=== PATIENT | male | born 1960 | race African-American/Black ===

== ENCOUNTER 2017-08-09 17:15 | Emergency (ER) | payer OTHER ==
[2017-08-09 17:19] VITALS: BP 133/80; PULSE 109; BMI 34.2
[2017-08-09] MEDS ORDERED: ACETAMINOPHEN 325 MG TABLET (FP) PO ONE (17:21)
--- NOTE | 2017-08-09 18:04 | PDOC ---
History of Present Illness - General Chief Complaint: Cold Symptoms Stated Complaint: HEADACHE Time Seen by Provider: 08/09/17 17:37 History Source: Patient Exam Limitations: No Limitations - History of Present Illness Initial Comments: 08/09/17 17:59 57-year-old male presents the emergency room with complaints of myalgia, arthralgia, headache, cough, and fever for the past day. 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 Patient also denies dizziness, chest pain, shortness of breath, abdominal pain or nausea. Timing/Duration: 24 hours Severity: moderate Associated Symptoms: reports: cough, fever/chills, headaches, malaise, weakness Past History - Travel Traveled outside of the country in the last 30 days: No Close contact w/someone who was outside of country & ill: No - Past Medical History Allergies/Adverse Reactions: Allergies Allergy/AdvReac Type Severity Reaction Status Date / Time No Known Allergies Allergy Verified 08/09/17 17:19 Home Medications: Ambulatory Orders NK [No Known Home Medication] 08/09/17 COPD: No Other medical history: NONE - Immunization History Immunization Up to Date: Yes - Suicide/Smoking/Psychosocial Hx Smoking Status: No Smoking History: Never smoked Number of Cigarettes Smoked Daily: 0 Cigars Per Day: 0 Hx Alcohol Use: No Drug/Substance Use Hx: No Patient Lives Alone: No Lives with/in: spouse/SO Review of Systems - Review of Systems Able to Perform ROS?: Yes Constitutional: Yes: Fever Respiratory: Yes: Cough Cardiac (ROS): No: Symptoms Reported ABD/GI: No: Symptoms Reported : No: Symptoms Reported Musculoskeletal: Yes: Joint Pain, Muscle Pain Integumentary: No: Symptoms Reported Neurological: Yes: Headache. No: Dizziness Hematologic/Lymphatic: No: Symptoms Reported *Physical Exam - Vital Signs Last Vital Signs Temp Pulse Resp BP Pulse Ox 101.1 F H 109 H 20 133/80 99 08/09/17 17:16 08/09/17 17:16 08/09/17 17:16 08/09/17 17:16 08/09/17 17:16 - Physical Exam General Appearance: Yes: Nourished, Appropriately Dressed. No: Apparent Distress HEENT: negative: Pale Conjunctivae Neck: positive: Supple Respiratory/Chest: positive: Lungs Clear, Normal Breath Sounds. negative: Respiratory Distress, Accessory Muscle Use Cardiovascular: positive: Regular Rhythm. negative: Murmur, Tachycardia Gastrointestinal/Abdominal: positive: Soft. negative: Tenderness Extremity: positive: Normal Capillary Refill. negative: Pedal Edema Integumentary: positive: Normal Color, Warm, Moist Neurologic: positive: Motor Strength 5/5 (ambulatory) ED Treatment Course - Medications Given in the ED: ED Medications Discontinued Medications Generic Name Dose Route Start Last Admin Trade Name Freq PRN Reason Stop Dose Admin Acetaminophen 650 mg 08/09/17 17:21 08/09/17 17:21 Tylenol - PO 08/09/17 17:22 650 mg NOW ONE Administration Medical Decision Making - Medical Decision Making 08/09/17 18:05 Pt with URI with fever. Pt given tylenol. Pt ordered for Influenza 08/09/17 18:26 Influenza swab negative. Based on clinical exam. Patient will be given Tamiflu. *DC/Admit/Observation/Transfer Diagnosis at time of Disposition: Influenza - Discharge Dispostion Disposition: HOME Condition at time of disposition: Good - Referrals Referrals: Dmitriy Rea [Primary Care Provider] - - Patient Instructions Printed Discharge Instructions: DI for Influenza -- Adult Additional Instructions: Please take Tylenol for was prescribed and take Motrin 400 mg every 6-8 hours for adequate fever and pain control. Please up with your doctor as needed and rest for the next 24 hours - Post Discharge Activity Forms/Work/School Notes: Back to Work
[2017-08-09 18:34] VITALS: TEMP 99
== END 2017-08-09 18:34 | disposition home or self-care (01) ==
LOC: JERFT 17:15
DX: J11.1 Influenza due to unidentified influenza virus with other respiratory manifestations (principal)
CPT/HCPCS: 87804; 99281-25

== ENCOUNTER 2017-10-04 11:47 | Emergency (ER) | payer OTHER ==
[2017-10-04 11:51] VITALS: BP 118/83; PULSE 89; TEMP 98.2; BMI 36.5
--- NOTE | 2017-10-04 12:45 | PDOC ---
History of Present Illness - General Chief Complaint: Rash Stated Complaint: RASH History Source: Patient Exam Limitations: No Limitations - History of Present Illness Initial Comments: 10/04/17 12:48 This 57-year-old male presents to the emergency room with a rash that is noted around the whole trunk of his body. He states that this happens on a yearly in the wintertime exclusively. He has gone to his doctor's however this year he was not able to get there for any kind of cream for relief of this hives/rash that is noted on his back and his chest. He does not have any tongue swelling, ALLERGIC reaction symptoms, anaphylactic symptoms. He does have this rash from his neck down to his pelvis. Past History - Past Medical History Allergies/Adverse Reactions: Allergies Allergy/AdvReac Type Severity Reaction Status Date / Time No Known Allergies Allergy Verified 10/04/17 11:51 Home Medications: Ambulatory Orders Diphenhydramin/Benzethon/Zinc [Calagel Gel] 177.44 ml TP BID #1 tube 10/04/17 Methylprednisolone [Medrol Dose [place]] 4 mg PO ASDIR #21 tablet 10/04/17 COPD: No - Immunization History Immunization Up to Date: Yes - Suicide/Smoking/Psychosocial Hx Smoking Status: No Smoking History: Never smoked Number of Cigarettes Smoked Daily: 0 Cigars Per Day: 0 Hx Alcohol Use: No Drug/Substance Use Hx: No Review of Systems - Review of Systems Able to Perform ROS?: Yes Comments:: 10/04/17 12:49 General statement: Rash Hematology: neg history of bleeding/blood thinners Skin: Neg for lesions, bruising. Positive rash HEENT: Neg symptoms Respiratory: Neg SOB or difficulty in breathing Cardiac: Neg chest pain GI: Neg pain, n/v : Neg problems on voiding MS: Neg for joint pain/stiffness, no edema Neuro: Neg for LOC, weakness, Endocrine: Neg for excess thirst/hunger, cold/heat intolerance, excess sweating Allergies: Neg for allergies *Physical Exam - Vital Signs Last Vital Signs Temp Pulse Resp BP Pulse Ox 98.2 F 89 18 118/83 99 10/04/17 11:48 10/04/17 11:48 10/04/17 11:48 10/04/17 11:48 10/04/17 11:48 - Physical Exam Comments: 10/04/17 12:50 General Appearance: This well appearing 57-year-old male V/S: hemodynamically stable, afebrile Skin: WNL of pt's skin color, no signs of pallor, mottling, cyanosis with noted rash throughout the trunk Head:symmetrical Eyes: EOM's intact, PERRLA Ears: denies pain Nose: patent Throat: lips, teeth, gums, tongue, buccal mucos pink and moist Lungs: Chest symmetry equal. Cap refill <3 seconds. Lung sounds clear Cardiac: PMI at R 4MCL space, pos S1 and S2, regular rate. Abdomen: Soft, round, nontender : Not observed Muscularskeletal: Gait steady, ambulated in to ER, no edema +PMS Neuro: AAOx3, cognitively intact, speech clear and appropriate. Medical Decision Making - Medical Decision Making 10/04/17 12:50 Patient was initially seen and examined. Patient is noted to have a rash. He's been taking Benadryl and making him tired. I've ordered him a Medrol Dosepak as well as some Caladryl suggestion and changing his Benadryl to Zyrtec. 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 *DC/Admit/Observation/Transfer Diagnosis at time of Disposition: Rash of back - Discharge Dispostion Disposition: HOME Condition at time of disposition: Good Admit: No - Prescriptions Prescriptions: Diphenhydramin/Benzethon/Zinc [Calagel Gel] 177.44 ml TP BID #1 tube Methylprednisolone [Medrol Dose [place]] 4 mg PO ASDIR #21 tablet - Referrals Referrals: ON STAFF,NOT [Primary Care Provider] - - Patient Instructions Printed Discharge Instructions: DI for Rash Additional Instructions: Discharge instructions 1. Please follow up with your primary physician within the next few days and explain that you have been seen here in the Emergency Room. 2. If you experience any worsening of symptoms, please return to the ER 3. use the steriods as prescribed. You could use the claritin instead of benadryl for itching. You can use caladryl for itching. These are over the counter. 4. Drink plenty of water - Post Discharge Activity
== END 2017-10-04 12:49 | disposition home or self-care (01) ==
LOC: JERFT 11:47
DX: R21 Rash and other nonspecific skin eruption (principal)
CPT/HCPCS: 99281-25

== ENCOUNTER 2018-12-30 00:43 | Emergency (ER) | payer OTHER ==
[2018-12-30 01:16] VITALS: BP 165/83; PULSE 66; TEMP 97.4; BMI 36.5
--- NOTE | 2018-12-30 01:19 | PDOC ---
History of Present Illness - General Chief Complaint: Pain Stated Complaint: ABDOMINAL PAIN Time Seen by Provider: 12/30/18 01:19 History Source: Patient Exam Limitations: No Limitations - History of Present Illness Initial Comments: Pt is a 58 yo M, with no significant PMH, who is presenting with complaints of L -sided abdominal pain for a few hours prior to presentation. Pt states he has had sharp pain which is intermittent and lasts for a few seconds, then resolves on its own. The pain comes every few minutes. Pt states he had a small BM yesterday, but was trying to go to the bathroom all day yesterday. He was not able to have a BM today, and was not able to pass gas. Pt denies any new or raw foods. Pt denies any fevers/chills, headache, vision changes, syncope, chest pain, palpitations, SOB, nausea/vomiting, urinary symptoms, diarrhea, or leg swelling. Social: Pt denies any cigarette, alcohol, or drug use. Pt denies any recent travel or sick contacts. Surgical: no relevant history. Family: brother with VT in 50s. 12/30/18 06:22 Past History - Travel Traveled outside of the country in the last 30 days: No Close contact w/someone who was outside of country & ill: No - Past Medical History Allergies/Adverse Reactions: Allergies Allergy/AdvReac Type Severity Reaction Status Date / Time No Known Allergies Allergy Verified 12/30/18 01:16 Home Medications: Ambulatory Orders Diphenhydramin/Benzethon/Zinc [Calagel Gel] 177.44 ml TP BID #1 tube 10/04/17 Methylprednisolone [Medrol Dose [place]] 4 mg PO ASDIR #21 tablet 10/04/17 Docusate Sodium [Colace -] 100 mg PO DAILY PRN #7 capsule 12/30/18 Glycerin Suppository Adult - 1 each RC ONCE PRN #2 supp.rect 12/30/18 COPD: No - Immunization History Immunization Up to Date: Yes - Suicide/Smoking/Psychosocial Hx Smoking Status: No Smoking History: Never smoked Have you smoked in the past 12 months: No Number of Cigarettes Smoked Daily: 0 Cigars Per Day: 0 Information on smoking cessation initiated: No Hx Alcohol Use: No Drug/Substance Use Hx: No Review of Systems - Review of Systems Able to Perform ROS?: Yes Is the patient limited Romanian proficient: No Constitutional: Yes: Weight Stable. No: Chills, Diaphoresis, Fever, Loss of Appetite, Malaise, Weakness HEENTM: No: Blurred Vision, Double Vision, Nose Congestion, Throat Pain, Difficulty Swallowing Respiratory: No: Cough, Orthopnea, Shortness of Breath Cardiac (ROS): No: Chest Pain, Edema, Irregular Heart Rate, Lightheadedness, Palpitations, Syncope, Chest Tightness ABD/GI: Yes: See HPI, Abdominal cramping. No: Constipated, Diarrhea, Nausea, Poor Appetite, Poor Fluid Intake, Rectal Bleeding, Vomiting, Tarry Stools : No: Burning, Dysuria, Pain, Urgency Musculoskeletal: No: Back Pain, Joint Pain Integumentary: No: Rash Neurological: No: Headache, Numbness, Weakness, Unsteady Gait, Dizziness Psychiatric: No: Sleep Pattern Change, Change in Appetite Endocrine: No: Increased Urine, Change in Weight Hematologic/Lymphatic: No: Anemia, Blood Clots, Easy Bleeding, Easy Bruising All Other Systems: Reviewed and Negative *Physical Exam - Vital Signs Last Vital Signs Temp Pulse Resp BP Pulse Ox 97.4 F L 66 22 H 165/83 99 12/30/18 00:43 12/30/18 00:43 12/30/18 00:43 12/30/18 00:43 12/30/18 00:43 - Physical Exam Comments: Vitals stable, pt afebrile. Pt appears uncomfortable, holding L side of abdomen. Obese body habitus. Pt alert and oriented x3. 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 No midline spinal tenderness, step-offs, or crepitus. Head normocephalic, atraumatic. Eyes PERRLA, EOMI. Oropharynx without erythema or exudates, no LAD b/l. No nasal congestion, hearing intact. Clear heart sounds, S1/S2, no JVD, b/l pedal edema, or heart murmur. Clear lung sounds, no respiratory distress, wheezes, crackles, or accessory muscle use. No abdominal or CVA tenderness to palpation, no rebound, no guarding. Abdomen soft, protuberant and mildly distended, and with normoactive bowel sounds. Reducible umbilical hernia. Skin without jaundice or rash. 12/30/18 06:23 ED Treatment Course - LABORATORY CBC & Chemistry Diagram: 12/30/18 02:41 12/30/18 02:41 Medical Decision Making - Medical Decision Making Pt was seen at bedside, also will be seen by attending Dr. Knott. Pt presenting with complaints of L-sided abdominal pain for a few hours prior to presentation. Pt states he has had sharp pain which is intermittent and lasts for a few seconds, then resolves on its own. The pain comes every few minutes. Pt states he had a small BM yesterday, but was trying to go to the bathroom all day yesterday. He was not able to have a BM today, and was not able to pass gas. Pt denies any new or raw foods. Pt denies any fevers/chills, headache, vision changes, syncope, chest pain, palpitations, SOB, nausea/vomiting, urinary symptoms, diarrhea, or leg swelling. Considering obstruction vs mesenteric ischemia vs constipation/gas pains vs pancreatitis. Ordered work-up including CBC, CMP, lactic acid, lipase, CT abd/pelvis with IV contrast. Provided 1 g ofirmev and 1 L IV NS for improvement of discomfort. Will continue to reassess pt and monitor for symptomatic improvement. CBC, CMP, lactic, and lipase all WNL. CT abd/pelvis showed mildly enlarged prostate but no acute pathology. Pt states pain improved after interventions. Serial abdominal exam showed no tenderness. Considering normal lab results and imaging, pt can be discharged to home with follow-up. Pt advised to follow-up with PCP in 1-2 days and has been referred to GI. Strict return precautions provided with pt understanding. Sent glycerin suppositories and stool softener to pt pharmacy. 12/30/18 06:02 *DC/Admit/Observation/Transfer Diagnosis at time of Disposition: Abdominal pain Qualifiers: Abdominal location: generalized Qualified Code(s): R10.84 - Generalized abdominal pain - Discharge Dispostion Disposition: HOME Condition at time of disposition: Improved Decision to Admit order: No - Prescriptions Prescriptions: Docusate Sodium [Colace -] 100 mg PO DAILY PRN #7 capsule PRN Reason: Constipation Glycerin Suppository Adult - 1 each RC ONCE PRN #2 supp.rect PRN Reason: Constipation - Referrals Referrals: Dmitriy Rea [Primary Care Provider] - Butch Traore MD [Staff Physician] - - Patient Instructions Printed Discharge Instructions: DI for Dyspepsia Additional Instructions: You were seen in the ER today for abdominal pain. The results of your labs and imaging today were normal. Please follow-up with your primary care doctor and GI (Dr. Oliver) within 1-2 days to discuss your visit and make sure your symptoms have improved. Please return to the ER if you have any worsening pain, development of fevers or chills, loss of consciousness, inability to tolerate food or fluids, or any other concerns. - Post Discharge Activity
--- NOTE | 2018-12-30 01:55 | PDOC ---
Attending Attestation - Resident Resident Name: Alise Granger - ED Attending Attestation I have performed the following: I have examined & evaluated the patient, The case was reviewed & discussed with the resident, I agree w/resident's findings & plan
[2018-12-30] MEDS ORDERED: ACETAMINOPHEN 1000 MG/100 ML VIAL (NON FORMULARY) IVPB ONE (02:17)
[2018-12-30] MEDS ORDERED: SODIUM CHLORIDE 1,000 ML IV STA (02:17)
[2018-12-30 02:53] LABS: BASO % 0.8 % (0-2.0); EOS % 2.7 % (0-4.5); HEMOGLOBIN 13.6 GM/dL (11.7-16.9); LYMPH % 30.7 % (8-40); MCH 30.8 pg (25.7-33.7); MCHC 34.9 g/dl (32.0-35.9); MEAN CELL VOLUME 88.2 fl (80-96); MEAN PLT VOLUME 7.6 fl (7.5-11.1); MONO % 10.6 % (3.8-10.2); NEUT % 55.2 % (42.8-82.8); PLATELET COUNT 214 K/MM3 (134-434); RBC 4.43 M/mm3 (4.00-5.60); RDW 13.8 % (11.9-15.9); WHITE BLOOD COUNT 5.5 K/mm3 (4.0-10.0)
[2018-12-30 03:11] LABS: INR 1.08 (0.83-1.09); PROTHROMBIN TIME (PATIENT) 12.8 SEC (9.7-13.0)
[2018-12-30 03:21] LABS: ALBUMIN 3.4 g/dl (3.4-5.0); ALK PHOS 60 U/L (45-117); ANION GAP 4 MMOL/L (8-16); BILIRUBIN,TOTAL 0.2 mg/dL (0.2-1); BLOOD UREA NITROGEN 19 mg/dL (7-18); CALCIUM 8.7 mg/dL (8.5-10.1); CHLORIDE 107 mmol/L (98-107); CO2 27 mmol/L (21-32); CREATININE 0.8 mg/dL (0.55-1.3); GLUCOSE,RANDOM 103 mg/dL (74-106); LIPASE 115 U/L (73-393); MAGNESIUM 2.1 mg/dL (1.8-2.4); POTASSIUM 4.1 mmol/L (3.5-5.1); SGOT/AST 18 U/L (15-37); SGPT/ALT 31 U/L (13-61); SODIUM 138 mmol/L (136-145); TOT PROT 7.2 g/dl (6.4-8.2)
[2018-12-30] MEDS ORDERED: morphine CARPU-JECT 4 MG/1 ML DISP.SYRIN IVPUSH ONE (03:37)
[2018-12-30] MEDS ORDERED: morphine SULFATE 4 MG/ML VIAL ONE (04:11)
--- NOTE | 2018-12-30 12:06 | EKG ---
Test Reason : Blood Pressure : / mmHG Vent. Rate : 055 BPM Atrial Rate : 055 BPM P-R Int : 154 ms QRS Dur : 088 ms QT Int : 402 ms P-R-T Axes : 041 -38 011 degrees QTc Int : 384 ms SINUS BRADYCARDIA LEFT AXIS DEVIATION ABNORMAL ECG WHEN COMPARED WITH ECG OF 30-OCT-2014 20:35, NO SIGNIFICANT CHANGE WAS FOUND Confirmed by BRENT SORENSEN MD ([id number]) on 12/30/2018 12:05:57 PM Referred By: Confirmed By:BRENT SORENSEN MD
== END 2018-12-30 06:17 | disposition home or self-care (01) ==
LOC: JER 00:43
PROC: 3E0337Z Introduction of Electrolytic and Water Balance Substance into Peripheral Vein, Percutaneous Approach (ICD-10-PCS; principal; 2018-12-30)
PROC: 3E033NZ Introduction of Analgesics, Hypnotics, Sedatives into Peripheral Vein, Percutaneous Approach (ICD-10-PCS; 2018-12-30)
PROC: 3E033NZ Introduction of Analgesics, Hypnotics, Sedatives into Peripheral Vein, Percutaneous Approach (ICD-10-PCS; 2018-12-30)
DX: R10.84 Generalized abdominal pain (principal); K59.00 Constipation, unspecified
CPT/HCPCS: 36415; 71045-TC-FY; 74177-TC; 80053; 83605; 83690; 83735; 84484; 85025; 85610; 86850; 86900; 86901; 93005; 93010; 99281-25; J0131; J7030

== ENCOUNTER 2020-06-05 11:27 | Emergency (ER) | payer OTHER ==
[2020-06-05] MEDS ORDERED: SODIUM CHLORIDE 1,000 ML IV STA (11:31)
[2020-06-05] MEDS ORDERED: ACETAMINOPHEN 1000 MG/100 ML VIAL (NON FORMULARY) IVPB ONE ×2 (11:31→12:55)
--- NOTE | 2020-06-05 11:31 | PDOC ---
Rapid Medical Evaluation Time Seen by Provider: 06/05/20 11:29 Medical Evaluation: Allergies Allergy/AdvReac Type Severity Reaction Status Date / Time No Known Allergies Allergy Verified 12/30/18 01:16 06/05/20 11:29 I have performed a brief in-person evaluation of this patient. CC: abdominal pain x3 days PE: LLQ tenderness with guarding Orders: abd w/u Patient will proceed to ED for further evaluation. Discharge Disposition - Diagnosis Abdominal pain - Referrals - Patient Instructions - Post Discharge Activity
[2020-06-05 11:32] VITALS: BMI 36.5
--- NOTE | 2020-06-05 12:05 | PDOC ---
Attending Attestation - Resident Resident Name: TalhaDagoberto - ED Attending Attestation I have performed the following: I have examined & evaluated the patient, The case was reviewed & discussed with the resident, I agree w/resident's findings & plan, Exceptions are as noted - HPI HPI: 06/05/20 11:56 60y M no known pmhx presents with complaint of abdominal pain since thursday. The pt endorses an intermittent sharp abdomiinal pain in the mid abdomen since thursday, the pain is intermittent, lasting approx 10 min but recurs several times an hour. The pain seems more frequent/persistent over the past day. He denies any fever/chills, n/v, cp, sob, diaphoresis, cough. The pain does not radiate to either side, groin or to his back. There are no alleviating or exacerbating factors, when he gets the pain, he just waits it out. Last BM was this morning and did not change his abd pain. No prior surgical history. Physicial esxam: GENERAL: The patient is awake, alert, and fully oriented, Nontoxic - in no acute distress. HEAD: Normocephalic, atraumatic. EYES: extraocular movements intact, sclera anicteric, conjunctiva clear. ENT: Normal voice, Moist mucous membranes. NECK: Normal range of motion, supple LUNGS: Breath sounds equal, clear to auscultation bilaterally. No wheezes, no rhonchi, no rales. HEART: Regular rate and rhythm, normal S1 and S2 without murmur, rub or gallop. ABDOMEN: Soft, mild periumbilical tendernss, reducible umbilical hernia that is nontender, No guarding, no rebound. No CVA tenderness EXTREMITIES: Normal range of motion, no edema. NEUROLOGICAL: No facial assymetry, Normal speech, PSYCH: Normal mood, normal affect. SKIN: Warm, Dry, normal turgor, ddx is wide and includes pancreatitis, gastritis, cholelithiasis, nephrolithasis, ileus. will obtain blood work analgesia ct abdomen will reassess - Physicial Exam PE: 06/09/20 12:52 see above - Medical Decision Making 06/05/20 13:56 The patient's blood work was reviewed noted for potassium of 7.0 however I believe this is likely due to a hemolyzed specimen the patient's EKG does not reveal any signs of hyperkalemia. We will resend his blood work 06/05/20 15:21 pts repeat labs normal ct abd without acute process pt feeling improved, tolerated oral intake will dc the pt with outpt fu return precautions were discussed Heart Score/ECG Review - ECG Impressions Comment:: 06/05/20 13:57 Twelve-lead EKG was performed and reviewed by me. There is normal sinus rhythm with a rate of 52 Left axis deviation The intervals are normal. There is normal R wave progression There are no ST or T wave abnormalities. Impression: Sinus bradycardia Discharge - Discharge Information Problems reviewed: Yes Clinical Impression/Diagnosis: Abdominal pain Qualifiers: Abdominal location: periumbilical Qualified Code(s): R10.33 - Periumbilical pain Condition: Good Disposition: HOME - Admission No - Follow up/Referral Referrals: Hardeep Christensen MD [Staff Physician] - Jose Roberto Ornelas MD [Staff Physician] - ON STAFF,NOT [Primary Care Provider] - - Patient Discharge Instructions Patient Printed Discharge Instructions: DI for Abdominal Pain-Adult Additional Instructions: You were seen in the ER for abdominal pain. You received labs, imaging, and medications. Your labs were unremarkable. Your imaging may have shown evidence of a small obstruction of your small bowel however this is not certain. After receiving medications you reported improvement of your symptoms. You were able to drink water without vomiting or worsening of your pain which is reassuring. 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 If you experience any of the following return to the ER immediately: - worsening abdominal pain - rigid abdomen - inability to pass gas or stool - reduction in frequency of bowel movements - blood in your stool - vomiting - fever, chills - chest pain or shortness of breath - Post Discharge Activity Work/Back to School Note: Back to Work
--- NOTE | 2020-06-05 12:20 | PDOC ---
History of Present Illness - General Chief Complaint: Pain Stated Complaint: ABD.PAIN Time Seen by Provider: 06/05/20 11:29 - History of Present Illness Initial Comments: 60 YOM no history presents with abdominal pain since two days. Patient reports the pain is diffuse, sharp in quality, comes in waves, 8/10 at worst, no change with eating or position, no radiation. Last bowel movement was this AM, unsure of last flatus. No h/o abdominal surgery. Patient has abdominal hernia and wonders if pain is related. Denies pain or blood with urination, pain or blood with stool, denies cp, sob, n/v/d, fever or chills. No recent sick contacts, no recent travel. PC is roxana clemente Constitutional: No Weight Change, No Fever, No Chills, No Night Sweats, No Fatigue, No Malaise ENT/Mouth: No Hearing Changes, No Ear Pain, No Nasal Congestion, No Sinus Pain, No Hoarseness, No sore throat, No Rhinorrhea, No Swallowing Difficulty Eyes: No Eye Pain, No Swelling, No Redness, No Foreign Body, No Discharge, No Vision Changes Cardiovascular: No Chest Pain, No SOB, No PND, No Dyspnea on Exertion, No Orthopnea, No Claudication, No Edema, No Palpitations Respiratory: No Cough, No Sputum, No Wheezing, No Smoke Exposure, No Dyspnea Gastrointestinal: No Nausea, No Vomiting, No Diarrhea, No Constipation, + Pain, No Heartburn, No Anorexia, No Dysphagia, No Hematochezia, No Melena, No Flatulence, No Jaundice Genitourinary: No Dysmenorrhea, No DUB, No Dyspareunia, No Dysuria, No Urinary Frequency, No Hematuria, No Urinary Incontinence, No Urgency, No Flank Pain, No Urinary Flow Changes, No Hesitancy Musculoskeletal: No Arthralgias, No Myalgias, No Joint Swelling, No Joint Stiffness, No Back Pain, No Neck Pain, No Injury History Skin: No Skin Lesions, No Pruritis, No Hair Changes, No Breast/Skin Changes, No Nipple Discharge Neuro: No Weakness, No Numbness, No Paresthesias, No Loss of Consciousness, No Syncope, No Dizziness, No Headache, No Coordination Changes, No Recent Falls Psych: No Anxiety/Panic, No Depression, No Insomnia, No Personality Changes, No Delusions, No Rumination, No SI/HI/AH/VH, No Social Issues, No Memory Changes, No Violence/Abuse Hx., No Eating Concerns Heme/Lymph: No Bruising, No Bleeding, No Transfusions History, No Lymphadenopathy Endocrine: No Polyuria, No Polydipsia, No Temperature Intolerance 06/05/20 12:31 Past History - Medical History Allergies/Adverse Reactions: Allergies Allergy/AdvReac Type Severity Reaction Status Date / Time No Known Allergies Allergy Verified 12/30/18 01:16 Home Medications: Ambulatory Orders Diphenhydramin/Benzethon/Zinc [Calagel Gel] 177.44 ml TP BID #1 tube 10/04/17 Methylprednisolone [Medrol Dose [place]] 4 mg PO ASDIR #21 tablet 10/04/17 Docusate Sodium [Colace -] 100 mg PO DAILY PRN #7 capsule 12/30/18 Glycerin Suppository Adult - 1 each RC ONCE PRN #2 supp.rect 12/30/18 COPD: No - Immunization History Immunization Up to Date: Yes - Psycho-Social/Smoking History Smoking Status: No Smoking History: Never smoked Have you smoked in the past 12 months: No Number of Cigarettes Smoked Daily: 0 Cigars Per Day: 0 Information on smoking cessation initiated: No - Substance Abuse Hx (Audit-C & DAST Scrn) How often the patient has a drink containing alcohol: Never Score: In Men: 4 or > Positive; In Women: 3 or > Positive: 0 Screen Result (Pos requires Nsg. Audit-10AR): Negative In the last yr the pt used illegal drug/Rx for NonMed reason: No Score: Yes response is considered Positive: 0 Screen Result (Positive result requires Nsg. DAST-10): Negative *Physical Exam - Vital Signs Last Vital Signs Temp Pulse Resp BP Pulse Ox 98.0 F 56 L 19 132/78 99 06/05/20 11:30 06/05/20 11:30 06/05/20 11:30 06/05/20 11:30 06/05/20 11:30 - Physical Exam General Appearance: Yes: Nourished, Appropriately Dressed HEENT: positive: EOMI, TELLY, Normal ENT Inspection, Normal Voice, Symmetrical, TMs Normal, Pharynx Normal Neck: positive: Trachea midline, Normal Thyroid Respiratory/Chest: positive: Lungs Clear, Normal Breath Sounds Cardiovascular: positive: Regular Rhythm, Regular Rate, S1, S2 Gastrointestinal/Abdominal: positive: Normal Bowel Sounds, Tender, Flat, Soft, Tenderness Extremity: positive: Normal Capillary Refill, Normal Inspection Integumentary: positive: Normal Color, Dry, Warm 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: 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: 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-XII NML intact, Fully Oriented, Alert, Normal Mood/Affect, Normal Response, Motor Strength / ED Treatment Course - LABORATORY CBC & Chemistry Diagram: 06/05/20 12:50 06/05/20 13:55 Medical Decision Making - Medical Decision Making 60 YOM, no history, with abdominal pain - vitals stable - exam significant for ttp in center of abdomen, otherwise unremarkable - will do CBC, CMP, lipase, lactate, CT abdomen, Maalox, tylenol, famotidine and reassess reassess: - patient reports he is feeling better after medications - [address] abdomen, first report read no evidence of acute intra abdominal pathology, 2nd radiologist called and reported possible small obs truction in small bowel but uncertain, PO challenged patient, was able to tolerate PO without any pain, offered CT study with PO contrast and patient declined preferring to return home and follow up with surgery and GI as an oupatient, patient was given strict return precautions, patient expressed u nderstanding. - will dc patient to f/u with surgery and GI 06/05/20 16:54 Discharge - Discharge Information Problems reviewed: Yes Clinical Impression/Diagnosis: Abdominal pain Condition: Good - Admission No - Follow up/Referral Referrals: ON STAFF,NOT [Primary Care Provider] - Jose Roberto Ornelas MD [Staff Physician] - Hardeep Christensen MD [Staff Physician] - - Patient Discharge Instructions Patient Printed Discharge Instructions: DI for Abdominal Pain-Adult Additional Instructions: You were seen in the ER for abdominal pain. You received labs, imaging, and medications. Your labs were unremarkable. Your imaging may have shown evidence of a small obstruction of your small bowel however this is not certain. After receiving medications you reported improvement of your symptoms. You were able to drink water without vomiting or worsening of your pain which is reassuring. We advise that you follow up with a camp boss and general surgeon within one week of discharge from the ER. If you experience any of the following return to the ER immediately: - worsening abdominal pain - rigid abdomen - inability to pass gas or stool - reduction in frequency of bowel movements - blood in your stool - vomiting - fever, chills - chest pain or shortness of breath - Post Discharge Activity Work/Back to School Note: Back to Work
--- NOTE | 2020-06-05 12:20 | EKG ---
Test Reason : Blood Pressure : / mmHG Vent. Rate : 052 BPM Atrial Rate : 052 BPM P-R Int : 168 ms QRS Dur : 092 ms QT Int : 412 ms P-R-T Axes : 032 -35 001 degrees QTc Int : 383 ms SINUS BRADYCARDIA LEFT AXIS DEVIATION ABNORMAL ECG WHEN COMPARED WITH ECG OF 30-DEC-2018 03:05, NO SIGNIFICANT CHANGE WAS FOUND Confirmed by MD Clark Edward ([id number]) on 06/05/2020 12:20:36 PM Referred By: Confirmed By:Jak Clark MD
[2020-06-05] MEDS ORDERED: ACETAMINOPHEN INJECTION 100 ML IVPB ONE (12:51)
[2020-06-05 13:02] LABS: BASO % 1.4 % (0-2.0); EOS % 3.2 % (0-4.5); HEMATOCRIT 40.5 % (35.4-49); HEMOGLOBIN 13.9 GM/dL (11.7-16.9); LYMPH % 36.4 % (8-40); MCH 30.3 pg (25.7-33.7); MCHC 34.3 g/dl (32.0-35.9); MEAN CELL VOLUME 88.4 fl (80-96); MEAN PLT VOLUME 7.9 fl (7.5-11.1); MONO % 11.3 % (3.8-10.2); NEUT % 47.7 % (42.8-82.8); PLATELET COUNT 207 K/MM3 (134-434); RBC 4.59 M/mm3 (4.00-5.60); RDW 13.7 % (11.9-15.9)
[2020-06-05 13:37] LABS: ALBUMIN 3.5 g/dl (3.4-5.0); BILIRUBIN,TOTAL 0.4 mg/dL (0.2-1); BLOOD UREA NITROGEN 15.4 mg/dL (7-18); CALCIUM 8.9 mg/dL (8.5-10.1); CREATININE 0.9 mg/dL (0.55-1.3); TOT PROT 7.6 g/dl (6.4-8.2)
[2020-06-05 14:46] LABS: ALBUMIN 3.7 g/dl (3.4-5.0); BILIRUBIN,TOTAL 0.2 mg/dL (0.2-1); BLOOD UREA NITROGEN 14.7 mg/dL (7-18); CALCIUM 8.8 mg/dL (8.5-10.1); CREATININE 0.8 mg/dL (0.55-1.3); POTASSIUM 4.2 mmol/L (3.5-5.1)
[2020-06-05 15:06] LABS: URINE APPEARANCE CLEAR; URINE BILIRUBIN NEGATIVE (NEGATIVE); URINE COLOR YELLOW; URINE GLUCOSE (UA) NEGATIVE (NEGATIVE); URINE KETONE NEGATIVE (NEGATIVE); URINE LEUK ESTERASE NEGATIVE (NEGATIVE); URINE NITRITE NEGATIVE (NEGATIVE); URINE PROTEIN NEGATIVE (NEGATIVE); URINE UROBILINOGEN 0.2 mg/dL (0.2-1.0)
[2020-06-05 16:23] VITALS: BP 130/78; PULSE 52; TEMP 97.5
== END 2020-06-05 17:32 | disposition home or self-care (01) ==
LOC: JER 11:27
PROC: 3E0333Z Introduction of Anti-inflammatory into Peripheral Vein, Percutaneous Approach (ICD-10-PCS; principal; 2020-06-05)
PROC: 3E0337Z Introduction of Electrolytic and Water Balance Substance into Peripheral Vein, Percutaneous Approach (ICD-10-PCS; 2020-06-05)
DX: R10.9 Unspecified abdominal pain (principal)
CPT/HCPCS: 36415; 74177-TC; 80053; 81003; 83605; 83690; 85025; 87086; 93005; 93010; 99285-25; J0131; Q9967

== ENCOUNTER 2023-01-23 09:18 | Emergency (ER) | payer OTHER ==
[2023-01-23 09:36] VITALS: BP 151/84; PULSE 69; RESP 16; TEMP 98.6; BMI 35.7
[2023-01-23] MEDS ORDERED: CYCLOBENZAPRINE HCL 10 MG TABLET (FP) PO ONE (09:53)
[2023-01-23] MEDS ORDERED: KETOROLAC TROMETHAMINE 30 MG/1 ML VIAL IM ONE (09:53)
[2023-01-23] MEDS ORDERED: LIDOCAINE 5% TOPICAL PATCH TP ONE (09:53)
[2023-01-23] MEDS ORDERED: LIDOCAINE 5% TOPICAL PATCH ONE (09:58)
[2023-01-23] MEDS ORDERED: KETOROLAC TROMETHAMINE 30 MG/1 ML VIAL ONE (09:58)
[2023-01-23] MEDS ORDERED: CYCLOBENZAPRINE HCL 10 MG TABLET (FP) ONE (09:58)
[2023-01-23] MEDS ORDERED: LIDOCAINE PATCH REMOVAL MC ONE (22:00)
== END 2023-01-23 11:00 | disposition home or self-care (01) ==
LOC: JERFT 09:18
PROC: 3E0233Z Introduction of Anti-inflammatory into Muscle, Percutaneous Approach (ICD-10-PCS; principal; 2023-01-23)
DX: M25.552 Pain in left hip (principal); M54.41 Lumbago with sciatica, right side
CPT/HCPCS: 99284-25